=== PATIENT | male | born 1960 ===

== ENCOUNTER 2020-06-21 17:41 | Emergency (ER) | payer SELFPAY ==
[~2020-06-21] VITALS: Ht 167.6 cm; Wt 82.4 kg
[2020-06-21] MEDS ORDERED: IBUPROFEN 600 MG TABLET ONE (18:09)
[2020-06-21] MEDS ORDERED: IBUPROFEN 600 MG TABLET PO ONE (18:30)
[2020-06-21] MEDS ORDERED: AZITHROMYCIN 500 MG TABLET PO ONE (18:30)
[2020-06-21 18:46] LABS: BASOPHILS % (AUTO) 0 % (0-1); EOSINOPHILS % (AUTO) 0 % (1-7); LYMPHOCYTES % (AUTO) 7 % (22-44); MEAN CORPUSCULAR HGB CONC 33.9 g/dL (33.2-36.2); MEAN PLATELET VOLUME 8.9 fL (7.4-10.4); MONOCYTES % (AUTO) 7 % (2-9); NEUTROPHILS % (AUTO) 86 % (42-75); PLATELET COUNT 241 x10^3/uL (130-400); RED BLOOD COUNT 4.75 x10^6/uL (4.38-5.82); RED CELL DISTRIBUTION WIDTH 13.8 % (9.4-14.8)
[2020-06-21 18:51] LABS: MD NO
[2020-06-21 18:55] LABS: ALBUMIN 3.4 g/dL (3.4-5.0); ANION GAP 8 mmol/L (5-15); CALCIUM 8.7 mg/dL (8.5-10.1); CHLORIDE 104 mmol/L (98-107)
[2020-06-21 18:59] LABS: ALANINE AMINOTRANSFERASE 48 U/L (12-78); ALKALINE PHOSPHATASE 149 U/L (45-117); BILIRUBIN,TOTAL 0.6 mg/dL (0.2-1.0); CREATININE 0.93 mg/dL (0.7-1.3); TOTAL PROTEIN 8.8 g/dL (6.4-8.2)
[2020-06-21 19:27] VITALS: BP 125/82
[2020-06-21] MEDS ORDERED: CEFTRIAXONE 1,000 MG IM ONE (19:30)
[2020-06-21] MEDS ORDERED: CEFTRIAXONE 1,000 MG ONE (19:34)
[2020-06-21] MEDS ORDERED: AZITHROMYCIN 250 MG TABLET ONE (19:34)
== END 2020-06-21 19:56 | disposition home or self-care (01) ==
LOC: ED 19:30
DX: U07.1 COVID-19 (principal); J18.9 Pneumonia, unspecified organism; R05 Cough; R09.81 Nasal congestion; R50.9 Fever, unspecified; M79.10 Myalgia, unspecified site; F41.9 Anxiety disorder, unspecified; I25.2 Old myocardial infarction
CPT/HCPCS: 71045; 80053; 83605; 85025; 87040; 87635; 93005; 96372; 99285; J0696

== ENCOUNTER 2020-06-22 16:49 | Emergency (ER) | payer MEDICAID ==
[~2020-06-22] VITALS: Ht 167.6 cm; Wt 82.9 kg
[2020-06-22 17:50] LABS: BASOPHILS % (AUTO) 0 % (0-1); EOSINOPHILS % (AUTO) 0 % (1-7); LYMPHOCYTES % (AUTO) 7 % (22-44); MEAN CORPUSCULAR HEMOGLOBIN 29.8 pg (27.5-34.5); MEAN CORPUSCULAR HGB CONC 33.8 g/dL (33.2-36.2); MEAN PLATELET VOLUME 8.7 fL (7.4-10.4); MONOCYTES % (AUTO) 8 % (2-9); NEUTROPHILS % (AUTO) 85 % (42-75); PLATELET COUNT 221 x10^3/uL (130-400); RED BLOOD COUNT 4.24 x10^6/uL (4.38-5.82); RED CELL DISTRIBUTION WIDTH 13.4 % (9.4-14.8)
[2020-06-22 17:52] VITALS: BP 125/78
--- NOTE | 2020-06-22 17:52 | NUR ---
PT SEEN HERE AT [facility] YESTERDAY. PT STATES HE FEELS BETTER TODAY THAN YESTERDAY. YESTERDAY, PT WAS TOLD TO COME BACK TODAY. PT CONNECTED TO MONITORING. CALL LIGHT IN REACH.
[2020-06-22 17:56] LABS: MD NO
[2020-06-22 18:01] LABS: ALANINE AMINOTRANSFERASE 41 U/L (12-78); ALBUMIN 2.8 g/dL (3.4-5.0); ANION GAP 4 mmol/L (5-15); CALCIUM 8.1 mg/dL (8.5-10.1); CHLORIDE 106 mmol/L (98-107); CREATININE 0.77 mg/dL (0.7-1.3)
[2020-06-22 18:06] LABS: ALKALINE PHOSPHATASE 118 U/L (45-117); BILIRUBIN,TOTAL 0.3 mg/dL (0.2-1.0); TOTAL PROTEIN 7.7 g/dL (6.4-8.2); TROPONIN I < 0.015 ng/mL (0.000-0.045)
[2020-06-22] MEDS ORDERED: IBUPROFEN 600 MG TABLET ONE (18:28)
[2020-06-22] MEDS ORDERED: IBUPROFEN 200 MG TABLET PO ONE (18:30)
--- NOTE | 2020-06-22 18:31 | NUR ---
SOCIAL STUDIES DEPARTMENT CHAIR PER MAR.
== END 2020-06-22 18:42 | disposition home or self-care (01) ==
LOC: ED 18:36
DX: U07.1 COVID-19 (principal); J12.89 Other viral pneumonia; R07.89 Other chest pain; R05 Cough; R06.02 Shortness of breath
CPT/HCPCS: 36415; 71045; 80053; 84484; 85025; 93005; 99285